=== PATIENT | female | born 1950 | race African-American/Black ===

== ENCOUNTER → 2017-02-02 | Outpatient (CLI) | payer OTHER ==
[2016-10-01 18:49] VITALS: BP 161/82
[2017-02-02 12:36] LABS: BASOPHILS # (AUTO) 0.1 X10^3/uL (0.0-0.1); BASOPHILS % (AUTO) 1.8 % (0.2-1.0); EOSINOPHILS # (AUTO) 0.3 x10^3/uL (0.0-0.2); EOSINOPHILS % (AUTO) 4.7 % (0.9-2.9); HEMATOCRIT 38.4 % (36.0-47.0); HEMOGLOBIN 13.1 g/dL (12.0-16.0); LYMPHOCYTES # (AUTO) 1.6 X10^3/uL (1.3-2.9); LYMPHOCYTES % (AUTO) 26.4 % (21.0-51.0); MEAN CORPUSCULAR HEMOGLOBIN 28.3 pg (27.0-34.0); MEAN CORPUSCULAR VOLUME 83.2 fL (80.0-100.0); MEAN PLATELET VOLUME 8.4 fL (7.4-11.0); MONOCYTES # (AUTO) 0.5 x10^3/uL (0.3-0.8); MONOCYTES % (AUTO) 8.2 % (0.0-13.0); NEUTROPHILS # (AUTO) 3.7 x10^3/uL (2.2-4.8); NEUTROPHILS % (AUTO) 58.9 % (42.0-75.0); PLATELET COUNT 338 X10^3/uL (150.0-450.0); RED BLOOD COUNT 4.62 X10^6/uL (3.5-5.4); WHITE BLOOD COUNT 6.2 X10^3/uL (3.6-10.0)
[2017-02-02 12:52] LABS: HEMOGLOBIN A1C 9.8 % (4.5-6.2)
[2017-02-02 13:23] LABS: ERYTHROCYTE SEDIMENTATION RATE 48 MM/HOUR (0-20)
[2017-02-02 13:33] LABS: ALANINE AMINOTRANSFERASE 13 Units/L (12-78); ALKALINE PHOSPHATASE 152 Units/L (46-116); ASPARTATE AMINO TRANSFERASE 34 Units/L (15-37); BLOOD UREA NITROGEN 15 mg/dL (7-18); CALCIUM 9.7 mg/dL (8.5-10.1); CARBON DIOXIDE 31.7 mmol/L (21-32); CHLORIDE 101 mmol/L (98-107); CHOL/HDL RATIO 4.8 (0.0-5.0); CHOLESTEROL 191 mg/dL (0-200); CREATININE 1.18 mg/dL (0.55-1.02); GLUCOSE 72 mg/dL (65-99); HDL CHOLESTEROL 40 mg/dL (40-60); PHOSPHORUS 3.5 mg/dL (2.6-4.7); TOTAL PROTEIN 9.4 g/dL (6.4-8.2); TRIGLYCERIDES 116 mg/dL (0-150); URIC ACID 6.1 mg/dL (2.6-6.0); eGFR BLACK RACES 59 (>60); eGFR NON BLACK RACES 49 (>60)
[2017-02-02 13:41] LABS: BILIRUBIN,DIRECT 0.06 mg/dL (0-0.2); SODIUM 143 mmol/L (136-145)
[2017-02-06 07:21] LABS: VITAMIN D 25 OH 37 ng/mL (30-80)
== END ==
LOC: LAB 11:04
PROVIDERS: ATTEND Internal Medicine
DX: I12.9 Hypertensive chronic kidney disease with stage 1 through stage 4 chronic kidney disease, or unspecified chronic kidney disease (principal); N18.3 Chronic kidney disease, stage 3 (moderate); E11.9 Type 2 diabetes mellitus without complications; E78.4 Other hyperlipidemia; B18.2 Chronic viral hepatitis C; E56.8 Deficiency of other vitamins; G47.8 Other sleep disorders; M06.09 Rheumatoid arthritis without rheumatoid factor, multiple sites; M19.041 Primary osteoarthritis, right hand; M19.042 Primary osteoarthritis, left hand
CPT/HCPCS: 36415; 80053; 80061; 82248; 82306; 83036; 84100; 84550; 85025; 85652; 86140; 87522

== ENCOUNTER → 2017-03-10 | Outpatient (CLI) | payer OTHER ==
[2016-10-01 18:49] VITALS: BP 161/82
--- NOTE | 2017-03-11 13:22 | MG ---
HISTORY: SCREENING Comparison: Multiple priors dating back to January 01, 2011 FINDINGS: Bilateral CC and MLO projections of the right and left breast were obtained. Scattered fibroglandul ar tissue is seen to be present without significant interval change. No suspicious architectural di stortion, mass or clustered microcalcifications can be observed to suggest malignancy. No skin thic kening or nipple retraction is appreciated. No pathological lymphadenopathy can be identified. Jj ign-appearing calcifications are noted within the right and left breast. IMPRESSION: NO RADIOGRAPHIC EVIDENCE OF MALIGNANCY. ACR CATEGORY 2 - benign findings. FOLLOW-UP EXAM 1 YEAR. Diagnostic CAD was utilized and reviewed. * 0 (ZERO) - ASSESSMENT INCOMPLETE; ADDITIONAL IMAGING IS NEEDED. * 1/ (ONE) - NEGATIVE. * 2/II (TWO) - BENIGN FINDINGS. * 3/III (THREE) - PROBABLY BENIGN FINDING; SHORT INTERVAL FOLLOW-UP SUGGESTED. * 4/IV (FOUR) - SUSPICIOUS ABNORMALITY; BIOPSY SHOULD BE CONSIDERED. * 5/V (FIVE) - HIGHLY SUSPICIOUS OF MALIGNANCY; BIOPSY SHOULD BE PERFORMED. A NEGATIVE X-RAY REPORT SHOULD NOT DELAY BIOPSY IF A DOMINANT OR CLINICALLY SUSPICIOUS MASS IS PRESENT; 4 TO 8 PERCENT OF CANCERS ARE NOT IDENTIFIED BY X-RAY. A NEG ATIVE REPORT MAY REINFORCE THE CLINICAL IMPRESSION. ADENOSIS AND DENSE BREASTS MAY OBSCURE AN UNDER LYING NEOPLASM. Reported By:
== END ==
LOC: RAD 09:33
PROVIDERS: ATTEND Psychiatry & Neurology Neurology
DX: Z00.00 Encounter for general adult medical examination without abnormal findings (principal); Z12.31 Encounter for screening mammogram for malignant neoplasm of breast
CPT/HCPCS: 77067

== ENCOUNTER → 2017-04-29 | Outpatient (CLI) | payer OTHER ==
[2016-10-01 18:49] VITALS: BP 161/82
== END ==
LOC: LAB 07:43
PROVIDERS: ATTEND Nurse Practitioner Family
DX: M06.09 Rheumatoid arthritis without rheumatoid factor, multiple sites (principal); E55.9 Vitamin D deficiency, unspecified
CPT/HCPCS: 36415; 82306; 85652; 86140

== ENCOUNTER → 2017-04-30 | Outpatient (CLI) | payer OTHER ==
[2016-10-01 18:49] VITALS: BP 161/82
== END ==
LOC: RT 10:38
PROVIDERS: ATTEND Nurse Practitioner Family
DX: G56.03 Carpal tunnel syndrome, bilateral upper limbs (principal)
CPT/HCPCS: 95911

== ENCOUNTER → 2017-07-15 | Outpatient (CLI) | payer OTHER ==
[2016-10-01 18:49] VITALS: BP 161/82
[2017-07-15 12:09] LABS: BASOPHILS % (AUTO) 0.9 % (0.2-1.0); EOSINOPHILS # (AUTO) 0.2 x10^3/uL (0.0-0.2); EOSINOPHILS % (AUTO) 3.5 % (0.9-2.9); HEMATOCRIT 34.8 % (36.0-47.0); HEMOGLOBIN 12.2 g/dL (12.0-16.0); LYMPHOCYTES # (AUTO) 1.5 X10^3/uL (1.3-2.9); MEAN CORPUSCULAR HEMOGLOBIN 29.1 pg (27.0-34.0); MEAN CORPUSCULAR VOLUME 83.3 fL (80.0-100.0); MEAN PLATELET VOLUME 8.2 fL (7.4-11.0); MONOCYTES # (AUTO) 0.5 x10^3/uL (0.3-0.8); MONOCYTES % (AUTO) 10.1 % (0.0-13.0); NEUTROPHILS # (AUTO) 3.1 x10^3/uL (2.2-4.8); NEUTROPHILS % (AUTO) 57.5 % (42.0-75.0); PLATELET COUNT 324 X10^3/uL (150.0-450.0); RED BLOOD COUNT 4.18 X10^6/uL (3.5-5.4); RED CELL DISTRIBUTION WIDTH 13.3 % (11.6-16.5); WHITE BLOOD COUNT 5.4 X10^3/uL (3.6-10.0)
[2017-07-15 12:16] LABS: HEMOGLOBIN A1C 10.2 % (4.5-6.2)
[2017-07-15 12:19] LABS: ALANINE AMINOTRANSFERASE 14 Units/L (12-78); ALBUMIN 3.8 g/dL (3.4-5.0); ALKALINE PHOSPHATASE 158 Units/L (46-116); ASPARTATE AMINO TRANSFERASE 18 Units/L (15-37); BLOOD UREA NITROGEN 15 mg/dL (7-18); CALCIUM 9.8 mg/dL (8.5-10.1); CARBON DIOXIDE 34.1 mmol/L (21-32); CHLORIDE 101 mmol/L (98-107); CHOL/HDL RATIO 3.9 (0.0-5.0); CHOLESTEROL 134 mg/dL (0-200); COR NA(FOR HYPERGLY) 140 mmol/L (136-145); CREATININE 1.72 mg/dL (0.55-1.02); HDL CHOLESTEROL 34 mg/dL (40-60); SODIUM 138 mmol/L (136-145); TOTAL PROTEIN 8.4 g/dL (6.4-8.2); TRIGLYCERIDES 148 mg/dL (0-150); eGFR BLACK RACES 38 (>60); eGFR NON BLACK RACES 32 (>60)
[2017-07-15 12:47] LABS: ERYTHROCYTE SEDIMENTATION RATE 34 MM/HOUR (0-20)
[2017-07-15 18:23] LABS: CREATININE,URINE 139.89 mg/dL (29-226)
[2017-07-15 18:24] LABS: MICROALBUMIN,URINE 137.1 mg/L
== END ==
LOC: LAB 11:35
PROVIDERS: ATTEND Nurse Practitioner Family
DX: M06.09 Rheumatoid arthritis without rheumatoid factor, multiple sites (principal); E55.9 Vitamin D deficiency, unspecified; E78.4 Other hyperlipidemia; I10 Essential (primary) hypertension; E11.9 Type 2 diabetes mellitus without complications
CPT/HCPCS: 36415; 80053; 80061; 82043; 82306; 83036; 85025; 85652; 86140

== ENCOUNTER → 2017-09-14 | Outpatient (CLI) | payer OTHER ==
[2016-10-01 18:49] VITALS: BP 161/82
[2017-09-14 10:29] LABS: C-REACTIVE PROTEIN 2.7 mg/L (0-3.0); URIC ACID 4.8 mg/dL (2.6-6.0)
== END ==
LOC: LAB 09:57
PROVIDERS: ATTEND Internal Medicine Rheumatology
DX: M06.09 Rheumatoid arthritis without rheumatoid factor, multiple sites (principal); M25.50 Pain in unspecified joint; M81.0 Age-related osteoporosis without current pathological fracture; R76.0 Raised antibody titer; Z79.899 Other long term (current) drug therapy
CPT/HCPCS: 36415; 84550; 85652; 86140

== ENCOUNTER → 2017-11-03 | Outpatient (CLI) | payer OTHER ==
[2016-10-01 18:49] VITALS: BP 161/82
[2017-11-03 09:01] LABS: HEMOGLOBIN A1C 10.4 % (4.5-6.2)
--- NOTE | 2017-11-03 09:03 | RAD ---
HISTORY: Lump on finger Study: Right hand: Three views Comparison: 05/27/2016 Findings: Carpal alignment is grossly normal. Minimal degenerative changes noted in the scaphotrapezium and sc aphotrapezoid articulation. Mild degenerative changes noted in the 1st carpometacarpal joint with mi nimal to mild in the 2nd carpometacarpal joint. Mild degenerative changes noted in the 1st metacarpo phalangeal joint. Minimal spurring is noted in a few of the remainder of the interphalangeal joints. No appreciable erosive changes noted. No acute bony abnormalities are identified. No radiopaque f oreign bodies are noted. No soft tissue masses are noted. IMPRESSION: 1. Osteoarthritic change in the right hand described above, showing no significant change when selwyn red to the prior examination. 2. I see no evidence of a soft tissue mass or radiopaque foreign body. Reported By:
[2017-11-03 09:11] LABS: ALANINE AMINOTRANSFERASE 15 Units/L (12-78); ALBUMIN 3.5 g/dL (3.4-5.0); ALKALINE PHOSPHATASE 107 Units/L (46-116); ASPARTATE AMINO TRANSFERASE 19 Units/L (15-37); BLOOD UREA NITROGEN 14 mg/dL (7-18); CALCIUM 8.9 mg/dL (8.5-10.1); CARBON DIOXIDE 32.6 mmol/L (21-32); CHLORIDE 102 mmol/L (98-107); CHOL/HDL RATIO 2.9 (0.0-5.0); CHOLESTEROL 109 mg/dL (0-200); COR NA(FOR HYPERGLY) 144 mmol/L (136-145); CREATININE 1.31 mg/dL (0.55-1.02); HDL CHOLESTEROL 38 mg/dL (40-60); SODIUM 142 mmol/L (136-145); TOTAL PROTEIN 8.1 g/dL (6.4-8.2); TRIGLYCERIDES 59 mg/dL (0-150); TSH (3RD GENERATION) 1.435 uIU/mL (0.358-3.74); eGFR BLACK RACES 52 (>60); eGFR NON BLACK RACES 43 (>60)
[2017-11-03 09:16] LABS: CREATININE,URINE 56.01 mg/dL (29-226)
[2017-11-03 09:18] LABS: BASOPHILS % (AUTO) 0.5 % (0.2-1.0); EOSINOPHILS # (AUTO) 0.3 x10^3/uL (0.0-0.2); EOSINOPHILS % (AUTO) 2.6 % (0.9-2.9); HEMOGLOBIN 11.3 g/dL (12.0-16.0); LYMPHOCYTES # (AUTO) 2.5 X10^3/uL (1.3-2.9); MEAN CORPUSCULAR HEMOGLOBIN 29.2 pg (27.0-34.0); MEAN CORPUSCULAR HGB CONC 34.3 g/dL (33.0-35.0); MEAN PLATELET VOLUME 9.5 fL (7.4-11.0); MONOCYTES # (AUTO) 1.1 x10^3/uL (0.3-0.8); NEUTROPHILS # (AUTO) 6.6 x10^3/uL (2.2-4.8); NEUTROPHILS % (AUTO) 62.9 % (42.0-75.0); PLATELET COUNT 245 X10^3/uL (150.0-450.0); RED BLOOD COUNT 3.89 X10^6/uL (3.5-5.4)
[2017-11-03 09:19] LABS: MICROALBUMIN,URINE 138.5 mg/L
[2017-11-03 09:35] LABS: WHITE BLOOD COUNT 9.5 X10^3/uL (3.6-10.0)
[2017-11-03 09:37] LABS: PLATELET MORPHOLOGY COMMENT NORMAL (NORMAL)
[2017-11-03 09:56] LABS: ERYTHROCYTE SEDIMENTATION RATE 58 MM/HOUR (0-20)
== END ==
LOC: LAB 08:00
PROVIDERS: ATTEND Nurse Practitioner Family
DX: E78.4 Other hyperlipidemia (principal); E11.9 Type 2 diabetes mellitus without complications; G56.03 Carpal tunnel syndrome, bilateral upper limbs; R22.31 Localized swelling, mass and lump, right upper limb; M06.09 Rheumatoid arthritis without rheumatoid factor, multiple sites; Z86.39 Personal history of other endocrine, nutritional and metabolic disease
CPT/HCPCS: 36415; 73130; 80053; 80061; 82043; 82306; 83036; 84443; 85025; 85652; 86140

== ENCOUNTER 2017-11-28 13:08 | Emergency (ER) | payer OTHER ==
[2017-11-28 13:16] VITALS: BP 118/62; BMI 24.7
[2017-11-28] MEDS ORDERED: PHENERGAN INJ 25 MG IM ONE (15:51)
--- NOTE | 2017-11-28 15:54 | DR.NAUSEAF ---
HPI - Time Seen Time seen: 15:51 - Primary Care Physician Primary Care Physician: NIRU - Complaints Chief Complaint Doctors Comments: Patient is complaining of diarrhea and vomiting for the past three days getting worst yesterday. State she has been having severe diarrhea with accidents today.. States she has been having problems keeping things down but she had a hamburger today and it stayed down withou problems. States the diarrhea is improving. She denies dysuria, fever, chills, cold or cough. States she has not had any uncooked food and no other family members ill. Chief Complaint:: DIARRHEA AND NAUSEA. - Reviewed Nurses Notes Reviewed: Yes - Source History Provided: Patient - Mode of Arrival Mode of Arrival: Ambulatory - Timing Onset of Chief Complaint: 11/26/17 - Context Onset: Spontaneous, After Eating, After Drinking Possible medication related (specify):: none Recent: None Possible Ingestion: Unknown : No History of: None - Quality Quality: Food Particles - Associated Signs and Symptoms Abdominal Pain Quality: Aching Abdominal Pain Location: Diffuse Symptoms: Diarrhea PMH - PMH Past Medical History: Yes Past Medical History: Arthritis, Diabetes, Hypertension Past Surgical History: Yes Surgical History: Cholecystectomy, Hysterectomy, Ortho Surgery - Family History History of Family Medical Conditions: Yes Family Medical History: Diabetes Mellitus, Coronary Artery Disease, Hypertension - Social History Does any household member use tobacco: No Alcohol Use: None Do you use any recreational Drugs:: No Lives With: Friend Lives Where: Home - infectious screening In the last 2 months have you had wt loss of >10#?: NO Have you had fever, night sweats or hemotysis?: No Have you traveled outside the country in the last 6 months?: No Isolation: Standard ROS - Review of Systems Constitutional: No Symptoms Reported, Loss of Appetite. negative: See HPI, Chills, Diaphoresis, Fever, Malaise, Weakness, Irritable, Fatigue, Other ENTM: No Symptoms Reported, Nose Discharge, Nose Congestion. negative: See HPI , Ear Pain, Ear Discharge, Pulling on Ears, Hearing Loss, Nose Pain, Epistaxis, Mouth Pain, Mouth Swelling, Loose Teeth, Drooling, Throat Pain, Throat Swelling , Ear Foreign Body Respiratoy: No Symptoms Reported. negative: See HPI, Productive Cough, Non- Productive Cough, Moist Cough, Dry Cough, Hacking Cough, Barking Cough, Brassy Cough, Orthopnea, Short of Breath, Stridor, Wheezing, Hemoptysis, Other Cardiovascular: No Symptoms Reported Gastrointestinal/Abdominal: No Symptoms Reported, Diarrhea, Nausea, Vomiting Genitourinary: No Symptoms Reported Neurological: No Symptoms Reported. negative: See HPI, Anxiety, Depressed, Emotional Problems, Headache, Numbness, Paresthesia, Pre-existing Deficit, Seizure, Tingling, Tremors, Weakness, Dizziness, Problems Walking, Speech Problem, Other Integumentary: No Symptoms Reported Hematologic/Lymphatic: No Symptoms Reported. negative: See HPI, Anemia, Blood Clots, Easy Bleeding, Easy Bruising, Swollen Glands, Lymphadenopathy, Other Endocrine: No Symptoms Reported Psychiatric: No Symptoms Reported PE - Vital Signs Vitals: Temperature 97.7 F Pulse Rate 94 Respiratory Rate 18 Blood Pressure 118/62 O2 Sat by Pulse Oximetry 99 - General Limitations: No Limitations General Appearance: Alert, In Distress (slight) - Head Head Exam: Normal Inspection, Atraumatic, Normocephalic - Eyes Eye exam: Normal Appearance, PERRL, EOMI. negative: Scleral Icterus, Conjunctival Injection, Nystagmus, Miosis, Mydrasis, Periorbital Swelling, Periorbital Tenderness, Other - ENT ENT Exam: Normal Exam, Normal Oropharynx, Normal External Ear Exam, Mucous Membranes Moist, TM's Normal Bilaterally - Neck Neck Exam: Normal Inspection, Full ROM, Trachea Midline. negative: Tenderness, Meningismus, Lymphadenopathy, Thyromegaly, Other - Chest Chest Inspection: Normal Inspection, Symmetric Chest Wall Rise. negative: Tenderness, Rash, Abscess, Other - Respiratory Respiratory Exam: Normal Lung Sounds Bilat, Accessory Muscle Use Respiratory Exam: Bilateral Clear to Auscultation - Cardiovascular Cardiovascular Exam: Regular Rate, Normal Rhythm, Normal Heart Sounds - Abdominal Exam Abdominal Exam: Normal Inspection, Normal Bowel Sounds, Soft. negative: Distention, Tenderness, Guarding, Rebound, Rigidity, Dimnished Bowel Sounds, Hyperactive Bowel Sounds, Hypoactive Bowel Sounds, Organomegaly, Trauma, Incision, Ascites, Mass, Bruit, Pulsatile Mass, Hernia, Other Abdominal Tenderness: negative: RUQ, RLQ, LUQ, LLQ, Epigastrium, Suprapubic, Diffuse, Mild, Moderate, Severe, Other - Rectal Rectal Exam: Deferred - External Exam: Female: Deferred : Speculum Exam (Female): Deferred : Bimanual Exam (female): Deferred - Extremities Extremities Exam: Normal Inspection, Full ROM, Tenderness, Normal Capillary Refill - Back Back Exam: Normal Inspection, Full ROM. negative: Tenderness, (R) CVA Tenderness, (L) CVA Tenderness, Muscle Spasm, Paraspinal Tenderness, Vertebral Tenderness, Rashes, (R) Sciatic Notch Tenderness, (L) Sciatic Notch Tendern, (R ) Straight Leg Raise, (L) Straight Leg Raise, Other - Neurologic Neurological Exam: Alert, Oriented X3, CN II-XII Intact, Normal Gait, Reflexes Normal - Psychiatric Psychiatric Exam: Normal Affect, Normal Mood - Skin Skin Exam: Warm, Dry, Intact, Normal Color - Diagnosis Discharge Problem: Gastroenteritis, Sinusitis, acute - Discharge Plan Disposition: HOME, SELF-CARE Condition: Stable Prescriptions: Cetirizine HCl [Zyrtec Tab 10 mg] 10 mg PO DAILY #30 tab Diphenoxylate/Atropine [Lomotil] 1 tab PO BID #14 tab Ondansetron [Zofran Odt] 4 mg PO Q8H PRN #12 tab PRN Reason: Nausea/Vomiting - Follow ups/Referrals Follow ups/Referrals: TREASURE ORTIZ [Primary Care Provider] - 3 days - Instructions Instructions: Viral Gastroenteritis, Adult, [id number], Sinusitis, Adult, [id number]
[2017-11-28] MEDS ORDERED: PHENERGAN INJ 25 MG ONE (16:06)
== END 2017-11-28 16:25 | disposition home or self-care (01) ==
LOC: ER 13:33
DX: K52.89 Other specified noninfective gastroenteritis and colitis (principal); J01.80 Other acute sinusitis
CPT/HCPCS: 96372; 99282; J2550

== ENCOUNTER 2018-01-02 16:39 | Emergency (ER) | payer OTHER ==
[2018-01-02 16:46] VITALS: BP 186/81; BMI 25.9
--- NOTE | 2018-01-02 20:38 | DR.GENAD ---
HPI - PCP Primary Care Physician: VIVIEN ORTIZ - Complaint/Symptoms Chief Complaint Doctors Comments: History as stated; patient with history of osteoarthritis per review of record. Chief Complaint:: C/O NECK PAIN THAT STARTED YESTERDAY. STATES THE PAIN WAS WORSE WHEN SHE WOKE UP THIS AM - Source History Provided: Patient - Mode of Arrival Mode of Arrival: Ambulatory - Timing Onset of Chief Complaint: 01/01/18 PMH - PMH Past Medical History: Yes Past Medical History: Arthritis, Diabetes, Hypertension Past Surgical History: Yes Surgical History: Cholecystectomy, Hysterectomy, Ortho Surgery - Family History History of Family Medical Conditions: Yes Family Medical History: Diabetes Mellitus, Coronary Artery Disease, Hypertension - Social History Does patient currently use any type of tobacco product: No Have you used tobacco products in the last 12 months: No Type of Tobacco Use: None Does any household member use tobacco: No Alcohol Use: None Do you use any recreational Drugs:: No Lives With: Friend Lives Where: Home - infectious screening In the last 2 months have you had wt loss of >10#?: NO Have you had fever, night sweats or hemotysis?: No Have you traveled outside the country in the last 6 months?: No Isolation: Standard ROS - Review of Systems Constitutional: No Symptoms Reported Eyes: No Symptoms Reported ENTM: No Symptoms Reported Respiratoy: No Symptoms Reported Cardiovascular: No Symptoms Reported Gastrointestinal/Abdominal: No Symptoms Reported Genitourinary: No Symptoms Reported Neurological: No Symptoms Reported Musculoskeletal: No Symptoms Reported Integumentary: No Symptoms Reported Hematologic/Lymphatic: No Symptoms Reported Endocrine: No Symptoms Reported Psychiatric: No Symptoms Reported All Other Systems: Reviewed and Negative PE - Vital Signs Vitals: Temperature 98.6 F Pulse Rate 95 Respiratory Rate 20 Blood Pressure 186/81 O2 Sat by Pulse Oximetry 98 - General Limitations: No Limitations General Appearance: Alert, In No Apparent Distress - Head Head Exam: Normal Inspection, Atraumatic - Eyes Eye exam: Normal Appearance, PERRL, EOMI - ENT ENT Exam: Normal Exam External Ear Exam: Normal External Inspection TM/Canal Exam: Bilateral Normal Nose Exam: Normal Nose Exam, Sinus Tenderness Mouth Exam: Normal Inspection Throat Exam: Normal Inspection - Neck Neck Exam: Normal Inspection, Full ROM - Chest Chest Inspection: Normal Inspection, Symmetric Chest Wall Rise - Respiratory Respiratory Exam: Normal Lung Sounds Bilat Respiratory Exam: Bilateral Clear to Auscultation - Cardiovascular Cardiovascular Exam: Regular Rate - Abdominal Exam Abdominal Exam: Normal Inspection, Normal Bowel Sounds Abdominal Tenderness: negative: RUQ, RLQ, LUQ, LLQ, Epigastrium, Suprapubic, Diffuse, Mild, Moderate, Severe, Other - Extremities Extremities Exam: Normal Inspection - Back Back Exam: Normal Inspection, Full ROM - Neurologic Neurological Exam: Alert, Oriented X3, CN II-XII Intact - Psychiatric Psychiatric Exam: Normal Affect, Normal Mood - Skin Skin Exam: Warm, Dry, Intact ROR - XRAY XRAY Interpreted by: Radiologist (C spine: Vertebral body heights and alignment are normal. No acute fracture or subluxation is identified. There is mild degenerative disc disease and facet arthropathy, most significant at C5-C6. Prevertebral soft tissues are unremarkable. Impression: Mild degenerative changes.) - Diagnosis Discharge Problem: Osteoarthritis cervical spine Qualifiers: Spinal osteoarthritis complication: unspecified spinal osteoarthritis Qualified Code(s): M47.812 - Spondylosis without myelopathy or radiculopathy, cervical region - Discharge Plan Condition: Stable - Follow ups/Referrals Follow ups/Referrals: TREASURE ORTIZ [Primary Care Provider] - 3 days - Instructions
[2018-01-02] MEDS ORDERED: TORADOL 60 MG VIAL IM ONE (21:21)
--- NOTE | 2018-01-02 22:24 | RAD ---
Cervical spine, four views Indication: Neck pain without trauma Comparison: None Findings: Vertebral body heights and alignment are normal. No acute fracture or subluxation is identi fied. There is mild degenerative disc disease and facet arthropathy, most significant at C5-C6. Preve rtebral soft tissues are unremarkable. Impression: No acute radiographic abnormality of the cervical spine. Mild degenerative changes, as above. Reported By:
== END 2018-01-02 23:00 | disposition home or self-care (01) ==
LOC: ER 16:49
DX: M47.812 Spondylosis without myelopathy or radiculopathy, cervical region (principal)
CPT/HCPCS: 72040; 96372; 99282; 99283; J1885